=== PATIENT | male | born 1940 | race Caucasian/White ===

== ENCOUNTER 2021-02-26 10:07 | Observation (INO) ==
[2021-02-26 10:58] LABS: Basophils # 0.1 K/mcL (0.0-0.2); Basophils % 0.5 %; Eosinophils # 0.2 K/mcL (0.0-0.6); Eosinophils % 0.9 %; Hematocrit 32.7 % (37.5-50.1); Immature Granulocytes % 0.5 % (0-4); Lymphocytes # 0.7 K/mcL (0.6-4.6); Lymphocytes % 3.9 %; Mean Corpuscular HGB Conc 30.6 g/dL (31.6-35.5); Mean Corpuscular Volume 98.2 fL (83.0-100.0); Mean Platelet Volume 9.3 fL (9.4-12.4); Monocytes # 1.2 K/mcL (0.0-1.3); Platelet Count 356 K/mcL (140-400); Red Blood Count 3.33 M/mcL (4.19-5.50); Red Cell Distribution Width 14.1 % (11.5-14.5); Segmented Neutrophils % 87.2 %; White Blood Count 17.2 K/mcL (4.3-11.1)
[2021-02-26 11:07] LABS: Prothrombin Time 11.6 Seconds (9.4-12.1)
[2021-02-26 11:09] LABS: Activated Partial Thrombo Time 31.9 Seconds (26.0-36.0)
[2021-02-26 11:19] LABS: BUN/Creatinine Ratio 15 (6-26); Blood Urea Nitrogen 23 mg/dL (8-23); Calcium 8.9 mg/dL (8.6-10.3); Carbon Dioxide 29 mEq/L (23-29); Chloride 100 mEq/L (98-107); Glucose 167 mg/dL (70-105); Osmolality,Calculated 293 (280-300); Potassium 4.4 mEq/L (3.5-5.1); Sodium 138 mEq/L (136-145); Troponin I < 0.03 ng/mL (< 0.04); eGFR For African Americans 53 (> 60); eGFR For Non-African Americans 43 (> 60)
[2021-02-26] MEDS ORDERED: Ondansetron 4 MG/2 ML VIAL IVP ONE (12:31)
[2021-02-26] MEDS ORDERED: 0.9 % Sodium Chloride 1,000 ML IV ONE (13:19)
[2021-02-26] MEDS ORDERED: Melatonin 3 MG TABLET PO PRN (14:21)
[2021-02-26] MEDS ORDERED: Acetaminophen 325 MG TABLET PO PRN (14:21)
[2021-02-26] MEDS ORDERED: Naloxone 0.4 MG/ML INJ IVP PRN (14:21)
[2021-02-26] MEDS ORDERED: Perflutren Lipid Microsphere 1.3 ML in 0.9 % Sodium Chloride 8.7 ML IVP PRN (14:25)
[2021-02-26] MEDS ORDERED: Nitroglycerin 0.4 MG TAB.SUBL SL PRN (14:29)
[2021-02-26 15:50] LABS: Bacteria,Urine Few per hpf (None-Few); Bilirubin,Urine Negative (Negative); Blood,Urine Negative (Negative); Clarity,Urine Turbid (Clear); Color,Urine Yellow (Yellow); Glucose,Urine (UA) Normal (Normal); Hyaline Casts,Urine Few per lpf (None Seen); Ketones,Urine Negative (Negative); Leukocyte Esterase,Urine Negative (Negative); Mucus,Urine Few per lpf (None-Few); Nitrite,Urine Negative (Negative); Protein,Urine 50 mg/dL (Neg-Trace); RBC,Urine 0-3 per hpf (0-3); Specific Gravity,Urine 1.023 (1.010-1.025); Transitional Epi Cells,Urine Few per hpf (None-Few); Urobilinogen,Urine Normal (Normal); WBC,Urine 0-3 per hpf (0-3)
[2021-02-26] MEDS ORDERED: ALPRAZolam 0.25 MG TABLET PO PRN (16:38)
[2021-02-26] MEDS: 0.9 % Sodium Chloride 1,000 ML IVC SCH ×3 (17:33→18:40)
[2021-02-26] MEDS: Ondansetron 4 MG/2 ML VIAL IVP PRN (17:33)
[2021-02-27] MEDS: 0.9 % Sodium Chloride 1,000 ML IVC SCH (04:47)
[2021-02-27 06:13] LABS: Basophils # 0.1 K/mcL (0.0-0.2); Basophils % 0.5 %; Eosinophils # 0.2 K/mcL (0.0-0.6); Eosinophils % 1.7 %; Hematocrit 30.7 % (37.5-50.1); Hemoglobin 9.6 g/dL (12.9-16.9); Immature Granulocytes % 0.4 % (0-4); Lymphocytes # 0.8 K/mcL (0.6-4.6); Mean Corpuscular HGB Conc 31.3 g/dL (31.6-35.5); Mean Corpuscular Hemoglobin 30.6 pg (28.0-33.3); Mean Corpuscular Volume 97.8 fL (83.0-100.0); Mean Platelet Volume 9.9 fL (9.4-12.4); Monocytes % 8.6 %; Neutrophils # 9.6 K/mcL (1.6-8.9); Platelet Count 332 K/mcL (140-400); Red Blood Count 3.14 M/mcL (4.19-5.50); Red Cell Distribution Width 14.1 % (11.5-14.5); Segmented Neutrophils % 81.8 %; White Blood Count 11.7 K/mcL (4.3-11.1)
[2021-02-27 06:18] LABS: BUN/Creatinine Ratio 15 (6-26); Blood Urea Nitrogen 17 mg/dL (8-23); Calcium 8.2 mg/dL (8.6-10.3); Carbon Dioxide 29 mEq/L (23-29); Chloride 103 mEq/L (98-107); Glucose 131 mg/dL (70-105); Magnesium 1.9 mg/dL (1.6-2.6); Osmolality,Calculated 293 (280-300); Potassium 3.4 mEq/L (3.5-5.1); Sodium 140 mEq/L (136-145); eGFR For African Americans > 60 (> 60); eGFR For Non-African Americans > 60 (> 60)
[2021-02-27] MEDS: Aspirin Enteric Coated 81 MG Tablet PO SCH (08:36)
[2021-02-27] MEDS: FLUoxetine 20 MG CAPSULE PO SCH (08:36)
[2021-02-27] MEDS: amLODIPine 5 MG TABLET PO SCH (08:36)
[2021-02-27] MEDS: Ondansetron 4 MG/2 ML VIAL IVP PRN (08:40)
[2021-02-27] MEDS: Pantoprazole 40 MG VIAL IVP SCH ×2 (08:43→16:57)
[2021-02-27] MEDS ORDERED: *HR* HYDROcodone/Acet 7.5/325 mg TABLET PO PRN ×2 (10:59→12:35)
[2021-02-27] MEDS: OLANZapine 5 MG TAB.RAPDIS PO SCH (11:34)
[2021-02-27 11:43] LABS: Lipase 12 Units/L (11-82)
[2021-02-27] MEDS ORDERED: *HR* OxyCODONE Immed Rel 5 MG TABLET PO PRN (12:35)
[2021-02-27] MEDS ORDERED: Abiraterone Acetate [Zytiga] 250 MG Tablet PO SCH (13:00)
[2021-02-27] MEDS: Abiraterone Acetate [Zytiga] 250 MG Tablet PO SCH (13:39)
[2021-02-27] MEDS: predniSONE 5 MG TABLET PO SCH (16:57)
[2021-02-27 21:14] LABS: Adenovirus F 40/41 PCR Not detected (Not detect); Astrovirus PCR Not detected (Not detect); C.difficile Toxin A/B Gene PCR Not detected (Not detect); Campylobacter by PCR Not detected (Not detect); Cryptosporidium by PCR Not detected (Not detect); Cyclospora cayetanensis PCR Not detected (Not detect); E. coli O157 by PCR Not detected (Not detect); Entamoeba histolytica PCR Not detected (Not detect); Enteroaggregative E.coli(EAEC) Not detected (Not detect); Enteropathogenic E.coli(EPEC) Not detected (Not detect); Enterotoxigenic E.coli (ETEC) Not detected (Not detect); Giardia lamblia PCR Not detected (Not detect); Norovirus GI/GII PCR Not detected (Not detect); Plesiomonas shigelloides PCR Not detected (Not detect); Rotavirus A PCR Not detected (Not detect); Salmonella PCR Not detected (Not detect); Sapovirus PCR Not detected (Not detect); Shig/EnteroinvasiveE coli EIEC Not detected (Not detect); Shigalike tox-prod E coli STEC Not detected (Not detect); Vibrio PCR Not detected (Not detect); Vibrio cholerae PCR Not detected (Not detect); Yersinia enterocolitica PCR Not detected (Not detect)
[2021-02-28] MEDS: Pantoprazole 40 MG VIAL IVP SCH (05:21)
[2021-02-28 05:49] LABS: Hematocrit 29.7 % (37.5-50.1); Hemoglobin 9.4 g/dL (12.9-16.9); Mean Corpuscular HGB Conc 31.6 g/dL (31.6-35.5); Mean Corpuscular Hemoglobin 30.6 pg (28.0-33.3); Mean Corpuscular Volume 96.7 fL (83.0-100.0); Mean Platelet Volume 9.3 fL (9.4-12.4); Platelet Count 320 K/mcL (140-400); Red Blood Count 3.07 M/mcL (4.19-5.50); Red Cell Distribution Width 13.8 % (11.5-14.5); White Blood Count 10.8 K/mcL (4.3-11.1)
[2021-02-28] MEDS ORDERED: *HR* Enoxaparin 40 MG/0.4 ML SYRINGE SQ SCH (06:00)
[2021-02-28 06:13] LABS: BUN/Creatinine Ratio 12 (6-26); Blood Urea Nitrogen 12 mg/dL (8-23); Calcium 8.2 mg/dL (8.6-10.3); Carbon Dioxide 30 mEq/L (23-29); Chloride 104 mEq/L (98-107); Glucose 132 mg/dL (70-105); Osmolality,Calculated 292 (280-300); Potassium 3.6 mEq/L (3.5-5.1); Sodium 140 mEq/L (136-145); eGFR For African Americans > 60 (> 60); eGFR For Non-African Americans > 60 (> 60)
[2021-02-28] MEDS: FLUoxetine 20 MG CAPSULE PO SCH (09:20)
[2021-02-28] MEDS: amLODIPine 5 MG TABLET PO SCH (09:20)
[2021-02-28] MEDS: Aspirin Enteric Coated 81 MG Tablet PO SCH (09:22)
[2021-02-28] MEDS: Abiraterone Acetate [Zytiga] 250 MG Tablet PO SCH (09:24)
[2021-02-28] MEDS: predniSONE 5 MG TABLET PO SCH (09:27)
[2021-02-28] MEDS: OLANZapine 5 MG TAB.RAPDIS PO SCH (09:29)
[2021-02-28 10:55] VITALS: BP 144/63; PULSE 89; TEMP 97.2; O2SAT 94
== END 2021-02-28 11:57 | disposition home or self-care (01) ==
LOC: EMEROOARM 10:07 → 2ANU 10:07 → SUATTDRO 14:27 → 2ANU 14:38
PROVIDERS: ADMIT Hospitalist; ATTEND Internal Medicine

== ENCOUNTER 2021-09-21 01:25 | Inpatient (IN) ==
[2021-09-21] MEDS ORDERED: Naloxone 0.4 MG/ML INJ IVP PRN (02:21)
[2021-09-21] MEDS ORDERED: Acetaminophen 325 MG TABLET PO PRN (02:21)
[2021-09-21] MEDS ORDERED: Dextrose Gel 15 GM/37.5 ML TUBE PO PRN ×2 (03:44)
[2021-09-21] MEDS ORDERED: *HR* Dextrose 50 % in Water (Syg) 50 ML SYRINGE IVP PRN (03:44)
[2021-09-21] MEDS ORDERED: D5% in Water 1,000 ML IVC PRN (03:44)
[2021-09-21] MEDS ORDERED: Azithromycin 500 MG in 0.9 % Sodium Chloride 250 ML IVPB SCH (04:00)
[2021-09-21] MEDS: *HR* Heparin 5,000 UNIT/ML VIAL SQ SCH ×3 (05:23→20:55)
[2021-09-21 06:00] LABS: Basophils # 0.1 K/mcL (0.0-0.2); Basophils % 0.5 %; Eosinophils # 0.1 K/mcL (0.0-0.6); Eosinophils % 1.2 %; Hematocrit 27.1 % (37.5-50.1); Hemoglobin 8.4 g/dL (12.9-16.9); Immature Granulocytes % 0.4 % (0-4); Lymphocytes # 0.8 K/mcL (0.6-4.6); Lymphocytes % 6.9 %; Mean Corpuscular Hemoglobin 29.8 pg (28.0-33.3); Mean Corpuscular Volume 96.1 fL (83.0-100.0); Mean Platelet Volume 9.4 fL (9.4-12.4); Monocytes # 1.3 K/mcL (0.0-1.3); Monocytes % 11.6 %; Neutrophils # 8.9 K/mcL (1.6-8.9); Platelet Count 291 K/mcL (140-400); Red Blood Count 2.82 M/mcL (4.19-5.50); Segmented Neutrophils % 79.4 %; White Blood Count 11.3 K/mcL (4.3-11.1)
[2021-09-21 06:06] LABS: INR 1.2; Prothrombin Time 13.7 Seconds (9.4-12.1)
[2021-09-21 06:15] LABS: Calcium 7.8 mg/dL (8.6-10.3); Magnesium 1.7 mg/dL (1.6-2.6); Potassium 5.1 mEq/L (3.5-5.1)
[2021-09-21] MEDS: Insulin LISPRO 300 UNITS/3 ML VIAL SUBQ SCH ×4 (07:24→20:31)
[2021-09-21] MEDS: predniSONE 20 MG TABLET PO SCH ×2 (09:34→11:41)
[2021-09-21] MEDS ORDERED: Iron Sucrose Complex 400 MG in 0.9 % Sodium Chloride 250 ML IVPB ONE (11:20)
[2021-09-21] MEDS: Cyanocobalamin (B-12) 1,000 MCG/ML VIAL IM SCH (11:38)
[2021-09-21] MEDS: 0.9 % Sodium Chloride 1,000 ML IVC SCH (11:38)
[2021-09-21] MEDS: Ondansetron 4 MG/2 ML VIAL IVP PRN ×2 (11:52→20:53)
[2021-09-21] MEDS: *HR* HYDROcodone/Acet 5/325 mg TABLET PO PRN (12:06)
[2021-09-21] MEDS: Doxycycline 100 MG in 0.9 % Sodium Chloride Mini Bag 100 ML IVPB SCH (17:35)
[2021-09-21] MEDS ORDERED: ALPRAZolam 0.25 MG TABLET PO PRN (18:13)
[2021-09-22] MEDS: 0.9 % Sodium Chloride 1,000 ML IVC SCH (04:25)
[2021-09-22] MEDS: Doxycycline 100 MG in 0.9 % Sodium Chloride Mini Bag 100 ML IVPB SCH ×2 (05:40→17:12)
[2021-09-22] MEDS: *HR* Heparin 5,000 UNIT/ML VIAL SQ SCH ×3 (05:40→20:49)
[2021-09-22 06:01] LABS: Basophils # 0.1 K/mcL (0.0-0.2); Basophils % 0.5 %; Eosinophils # 0.1 K/mcL (0.0-0.6); Eosinophils % 1.4 %; Hematocrit 27.2 % (37.5-50.1); Hemoglobin 8.5 g/dL (12.9-16.9); Immature Granulocytes % 0.4 % (0-4); Lymphocytes # 0.6 K/mcL (0.6-4.6); Lymphocytes % 6.1 %; Mean Corpuscular HGB Conc 31.3 g/dL (31.6-35.5); Mean Corpuscular Hemoglobin 29.5 pg (28.0-33.3); Mean Corpuscular Volume 94.4 fL (83.0-100.0); Mean Platelet Volume 9.5 fL (9.4-12.4); Monocytes # 1.1 K/mcL (0.0-1.3); Monocytes % 11.3 %; Neutrophils # 7.9 K/mcL (1.6-8.9); Platelet Count 293 K/mcL (140-400); Red Blood Count 2.88 M/mcL (4.19-5.50); Segmented Neutrophils % 80.3 %; White Blood Count 9.8 K/mcL (4.3-11.1)
[2021-09-22] MEDS: Insulin LISPRO 300 UNITS/3 ML VIAL SUBQ SCH ×4 (07:07→21:16)
[2021-09-22] MEDS: *HR* HYDROcodone/Acet 5/325 mg TABLET PO PRN ×2 (07:24→20:49)
[2021-09-22] MEDS: Ondansetron 4 MG/2 ML VIAL IVP PRN (07:24)
[2021-09-22] MEDS: Cyanocobalamin (B-12) 1,000 MCG/ML VIAL IM SCH (07:24)
[2021-09-22 08:34] LABS: BUN/Creatinine Ratio 13 (6-26); Blood Urea Nitrogen 18 mg/dL (8-23); Calcium 7.7 mg/dL (8.6-10.3); Carbon Dioxide 24 mEq/L (23-29); Chloride 106 mEq/L (98-107); Glucose 108 mg/dL (70-105); Magnesium 1.8 mg/dL (1.6-2.6); Osmolality,Calculated 288 (280-300); Phosphorous 2.1 mg/dL (2.7-4.5); Potassium 3.9 mEq/L (3.5-5.1); Sodium 138 mEq/L (136-145); eGFR For African Americans > 60 (> 60); eGFR For Non-African Americans 50 (> 60)
[2021-09-22] MEDS ORDERED: *HR* Promethazine 25 MG/ML VIAL IM ONE (12:02)
[2021-09-22 18:24] LABS: Adenovirus F 40/41 PCR Not detected (Not detect); Astrovirus PCR Not detected (Not detect); C.difficile Toxin A/B Gene PCR Not detected (Not detect); Campylobacter by PCR Not detected (Not detect); Cryptosporidium by PCR Not detected (Not detect); Cyclospora cayetanensis PCR Not detected (Not detect); Entamoeba histolytica PCR Not detected (Not detect); Enteroaggregative E.coli(EAEC) Not detected (Not detect); Enteropathogenic E.coli(EPEC) Not detected (Not detect); Enterotoxigenic E.coli (ETEC) Not detected (Not detect); Giardia lamblia PCR Not detected (Not detect); Norovirus GI/GII PCR Not detected (Not detect); Plesiomonas shigelloides PCR Not detected (Not detect); Rotavirus A PCR Not detected (Not detect); Salmonella PCR Not detected (Not detect); Sapovirus PCR Not detected (Not detect); Shig/EnteroinvasiveE coli EIEC Not detected (Not detect); Shigalike tox-prod E coli STEC Not detected (Not detect); Vibrio PCR Not detected (Not detect); Vibrio cholerae PCR Not detected (Not detect); Yersinia enterocolitica PCR Not detected (Not detect)
[2021-09-23] MEDS: Doxycycline 100 MG in 0.9 % Sodium Chloride Mini Bag 100 ML IVPB SCH (06:22)
[2021-09-23] MEDS: *HR* Heparin 5,000 UNIT/ML VIAL SQ SCH ×3 (06:28→22:05)
[2021-09-23] MEDS: Insulin LISPRO 300 UNITS/3 ML VIAL SUBQ SCH ×4 (07:29→21:33)
[2021-09-23] MEDS ORDERED: Benzonatate 100 MG CAPSULE PO PRN (09:21)
[2021-09-23] MEDS ORDERED: Menthol 1 EACH LOZENGE PO PRN (11:12)
[2021-09-23 11:36] LABS: Basophils # 0.1 K/mcL (0.0-0.2); Basophils % 0.5 %; Eosinophils # 0.1 K/mcL (0.0-0.6); Eosinophils % 1.1 %; Hematocrit 27.7 % (37.5-50.1); Hemoglobin 8.7 g/dL (12.9-16.9); Immature Granulocytes % 0.4 % (0-4); Lymphocytes # 0.6 K/mcL (0.6-4.6); Lymphocytes % 5.2 %; Mean Corpuscular HGB Conc 31.4 g/dL (31.6-35.5); Mean Corpuscular Hemoglobin 29.6 pg (28.0-33.3); Mean Corpuscular Volume 94.2 fL (83.0-100.0); Mean Platelet Volume 9.3 fL (9.4-12.4); Monocytes % 9.2 %; Neutrophils # 8.9 K/mcL (1.6-8.9); Platelet Count 334 K/mcL (140-400); Red Blood Count 2.94 M/mcL (4.19-5.50); Red Cell Distribution Width 13.9 % (11.5-14.5); Segmented Neutrophils % 83.6 %; White Blood Count 10.6 K/mcL (4.3-11.1)
[2021-09-23] MEDS: Ipratropium/Albuterol Neb 3 ML IH PRN (11:38)
[2021-09-23] MEDS: *HR* HYDROcodone/Acet 5/325 mg TABLET PO PRN ×2 (11:45→18:38)
[2021-09-23 11:59] LABS: Magnesium 1.7 mg/dL (1.6-2.6); Phosphorous 1.6 mg/dL (2.7-4.5)
[2021-09-23] MEDS: Ondansetron 4 MG/2 ML VIAL IVP PRN (12:09)
[2021-09-23 12:35] LABS: BUN/Creatinine Ratio 10 (6-26); Blood Urea Nitrogen 11 mg/dL (8-23); Calcium 7.5 mg/dL (8.6-10.3); Carbon Dioxide 23 mEq/L (23-29); Chloride 107 mEq/L (98-107); Glucose 123 mg/dL (70-105); Osmolality,Calculated 287 (280-300); Potassium 3.8 mEq/L (3.5-5.1); Sodium 138 mEq/L (136-145); eGFR For African Americans > 60 (> 60); eGFR For Non-African Americans > 60 (> 60)
[2021-09-23] MEDS: Cefdinir 300 MG CAPSULE PO SCH ×2 (15:46→22:05)
[2021-09-23] MEDS ORDERED: Metoprolol XL (24 HR) Succ 25 MG TAB.ER.24H PO SCH (16:15)
[2021-09-23] MEDS: Doxycycline 100 MG CAPSULE PO SCH (18:38)
[2021-09-23] MEDS ORDERED: *HR* Promethazine 25 MG/ML VIAL IM ONE (18:49)
[2021-09-23] MEDS ORDERED: Famotidine 20 MG TABLET PO SCH (21:00)
[2021-09-24 04:30] LABS: Basophils % 0.4 %; Eosinophils # 0.2 K/mcL (0.0-0.6); Eosinophils % 1.9 %; Hematocrit 26.4 % (37.5-50.1); Hemoglobin 8.1 g/dL (12.9-16.9); Immature Granulocytes % 0.3 % (0-4); Lymphocytes # 0.8 K/mcL (0.6-4.6); Lymphocytes % 8.1 %; Mean Corpuscular HGB Conc 30.7 g/dL (31.6-35.5); Mean Corpuscular Hemoglobin 29.1 pg (28.0-33.3); Mean Platelet Volume 9.6 fL (9.4-12.4); Monocytes % 9.8 %; Neutrophils # 7.8 K/mcL (1.6-8.9); Platelet Count 361 K/mcL (140-400); Red Blood Count 2.78 M/mcL (4.19-5.50); Red Cell Distribution Width 13.7 % (11.5-14.5); Segmented Neutrophils % 79.5 %; White Blood Count 9.8 K/mcL (4.3-11.1)
[2021-09-24 04:37] LABS: BUN/Creatinine Ratio 9 (6-26); Blood Urea Nitrogen 11 mg/dL (8-23); Calcium 7.3 mg/dL (8.6-10.3); Carbon Dioxide 27 mEq/L (23-29); Chloride 108 mEq/L (98-107); Glucose 98 mg/dL (70-105); Magnesium 1.6 mg/dL (1.6-2.6); Osmolality,Calculated 289 (280-300); Phosphorous 1.9 mg/dL (2.7-4.5); Potassium 3.6 mEq/L (3.5-5.1); Sodium 140 mEq/L (136-145); eGFR For African Americans > 60 (> 60); eGFR For Non-African Americans 58 (> 60)
[2021-09-24] MEDS: Doxycycline 100 MG CAPSULE PO SCH (05:22)
[2021-09-24] MEDS: *HR* Heparin 5,000 UNIT/ML VIAL SQ SCH ×3 (05:23→21:45)
[2021-09-24] MEDS: BuPROPion XL (24 HR) 150 MG TABLET PO SCH (07:45)
[2021-09-24] MEDS: Aspirin Enteric Coated 81 MG Tablet PO SCH (07:45)
[2021-09-24] MEDS: amLODIPine 5 MG TABLET PO SCH (07:46)
[2021-09-24] MEDS: Cefdinir 300 MG CAPSULE PO SCH (07:46)
[2021-09-24] MEDS: OLANZapine 5 MG TAB.RAPDIS PO SCH (07:46)
[2021-09-24] MEDS: Magnesium Oxide 400 MG TABLET PO SCH (07:46)
[2021-09-24] MEDS: FLUoxetine 20 MG CAPSULE PO SCH (07:49)
[2021-09-24] MEDS: Insulin LISPRO 300 UNITS/3 ML VIAL SUBQ SCH ×4 (07:57→21:22)
[2021-09-24] MEDS ORDERED: Acetaminophen IV 500 MG/50 ML BAG IVPB ONE (07:59)
[2021-09-24] MEDS ORDERED: Potassium Phosphate 44 MEQ in 0.9 % Sodium Chloride 250 ML IVPB ONE (08:00)
[2021-09-24] MEDS: Metoprolol XL (24 HR) Succ 25 MG TAB.ER.24H PO SCH ×2 (09:33→10:26)
[2021-09-24] MEDS: Piperacillin/Tazobactam 3.375 GM in 0.9 % Sodium Chloride Mini Bag 100 ML IVPB SCH ×2 (09:33→16:36)
[2021-09-24 10:39] LABS: Adenovirus Not Detected (Not Detect); Bordetella Pertussis Not Detected (Not Detect); Chlamydophila pneumoniae Not Detected (Not Detect); Coronavirus 229E Not Detected (Not Detect); Coronavirus HKU1 Not Detected (Not Detect); Coronavirus NL63 Not Detected (Not Detect); Coronavirus OC43 Not Detected (Not Detect); Human Metapneumovirus Not Detected (Not Detect); Human Rhinovirus/Enterovirus Not Detected (Not Detect); Influenza A Subtype 2009 H1 Not Detected (Not Detect); Influenza B Not Detected (Not Detect); Mycoplasma pneumoniae Not Detected (Not Detect); Parainfluenza Virus 1 Not Detected (Not Detect); Parainfluenza Virus 2 Not Detected (Not Detect); Parainfluenza Virus 3 Not Detected (Not Detect); Parainfluenza Virus 4 Not Detected (Not Detect); Respiratory Syncytial Virus Not Detected (Not Detect); SARS-CoV-2 Not Detected (Not Detect)
[2021-09-24] MEDS: *HR* HYDROcodone/Acet 5/325 mg TABLET PO PRN (10:42)
[2021-09-24] MEDS: Ipratropium/Albuterol Neb 3 ML IH PRN ×2 (11:37→15:37)
[2021-09-24 14:00] LABS: Bacteria,Urine Few per hpf (None-Few); Bilirubin,Urine Negative (Negative); Blood,Urine Negative (Negative); Budding Yeast,Urine Few per hpf (None Seen); Clarity,Urine Turbid (Clear); Color,Urine Yellow (Yellow); Glucose,Urine (UA) Normal (Normal); Hyaline Casts,Urine Few per lpf (None Seen); Ketones,Urine Negative (Negative); Leukocyte Esterase,Urine Negative (Negative); Mucus,Urine Few per lpf (None-Few); Nitrite,Urine Negative (Negative); Protein,Urine 70 mg/dL (Neg-Trace); Specific Gravity,Urine 1.026 (1.010-1.025); Squamous Epithelial Cell,Urine Few per hpf (None-Few); Triple Phosphate Crystal,Urine Present per hpf; Urobilinogen,Urine Normal (Normal)
[2021-09-24] MEDS: Pantoprazole 40 MG VIAL IVP SCH (16:37)
[2021-09-24] MEDS: Famotidine 20 MG TABLET PO SCH (21:22)
[2021-09-24] MEDS: *HR* OxyCODONE Immed Rel 5 MG TABLET PO PRN (21:23)
[2021-09-24] MEDS: Melatonin 3 MG TABLET PO PRN (21:23)
[2021-09-25] MEDS: Piperacillin/Tazobactam 3.375 GM in 0.9 % Sodium Chloride Mini Bag 100 ML IVPB SCH ×4 (00:20→23:52)
[2021-09-25] MEDS: *HR* Heparin 5,000 UNIT/ML VIAL SQ SCH ×3 (06:43→20:59)
[2021-09-25 07:03] LABS: Basophils # 0.1 K/mcL (0.0-0.2); Basophils % 0.5 %; Eosinophils # 0.3 K/mcL (0.0-0.6); Eosinophils % 2.3 %; Hematocrit 26.5 % (37.5-50.1); Hemoglobin 8.1 g/dL (12.9-16.9); Immature Granulocytes % 0.4 % (0-4); Lymphocytes # 0.6 K/mcL (0.6-4.6); Lymphocytes % 5.9 %; Mean Corpuscular HGB Conc 30.6 g/dL (31.6-35.5); Mean Corpuscular Hemoglobin 29.5 pg (28.0-33.3); Mean Corpuscular Volume 96.4 fL (83.0-100.0); Mean Platelet Volume 9.4 fL (9.4-12.4); Platelet Count 394 K/mcL (140-400); Red Blood Count 2.75 M/mcL (4.19-5.50); Red Cell Distribution Width 14.2 % (11.5-14.5); Segmented Neutrophils % 81.9 %; White Blood Count 10.9 K/mcL (4.3-11.1)
[2021-09-25] MEDS: Ipratropium/Albuterol Neb 3 ML IH PRN ×2 (07:31→21:15)
[2021-09-25] MEDS: Insulin LISPRO 300 UNITS/3 ML VIAL SUBQ SCH ×4 (07:49→20:51)
[2021-09-25 07:58] LABS: Calcium 7.3 mg/dL (8.6-10.3); Potassium 4.1 mEq/L (3.5-5.1)
[2021-09-25] MEDS: Magnesium Oxide 400 MG TABLET PO SCH (08:16)
[2021-09-25] MEDS: BuPROPion XL (24 HR) 150 MG TABLET PO SCH (08:16)
[2021-09-25] MEDS: FLUoxetine 20 MG CAPSULE PO SCH (08:16)
[2021-09-25] MEDS: amLODIPine 5 MG TABLET PO SCH (08:16)
[2021-09-25] MEDS: *HR* OxyCODONE Immed Rel 5 MG TABLET PO PRN ×2 (08:16→20:59)
[2021-09-25] MEDS: Aspirin Enteric Coated 81 MG Tablet PO SCH (08:16)
[2021-09-25] MEDS: Metoprolol XL (24 HR) Succ 25 MG TAB.ER.24H PO SCH (08:17)
[2021-09-25] MEDS: Pantoprazole 40 MG VIAL IVP SCH (08:18)
[2021-09-25] MEDS: OLANZapine 5 MG TAB.RAPDIS PO SCH (08:25)
[2021-09-25] MEDS: 0.9 % Sodium Chloride 1,000 ML IVC SCH (11:52)
[2021-09-25] MEDS: Ondansetron 4 MG/2 ML VIAL IVP PRN (13:54)
[2021-09-25] MEDS: *HR* HYDROcodone/Acet 7.5/325 mg TABLET PO PRN (15:20)
[2021-09-25] MEDS: Famotidine 20 MG TABLET PO SCH (20:59)
[2021-09-25] MEDS: Melatonin 3 MG TABLET PO PRN (20:59)
[2021-09-26] MEDS: 0.9 % Sodium Chloride 1,000 ML IVC SCH (04:14)
[2021-09-26] MEDS: *HR* Heparin 5,000 UNIT/ML VIAL SQ SCH (05:42)
[2021-09-26 06:03] LABS: Calcium 7.3 mg/dL (8.6-10.3); Potassium 3.9 mEq/L (3.5-5.1)
[2021-09-26] MEDS: Ipratropium/Albuterol Neb 3 ML IH PRN (07:07)
[2021-09-26] MEDS ORDERED: 0.9 % Sodium Chloride 1,000 ML IVC SCH (08:00)
[2021-09-26] MEDS: *HR* HYDROcodone/Acet 7.5/325 mg TABLET PO PRN (08:54)
[2021-09-26] MEDS: BuPROPion XL (24 HR) 150 MG TABLET PO SCH (08:55)
[2021-09-26] MEDS: Metoprolol XL (24 HR) Succ 25 MG TAB.ER.24H PO SCH (08:55)
[2021-09-26] MEDS: Piperacillin/Tazobactam 3.375 GM in 0.9 % Sodium Chloride Mini Bag 100 ML IVPB SCH (08:55)
[2021-09-26] MEDS: Pantoprazole 40 MG VIAL IVP SCH (08:55)
[2021-09-26] MEDS: Magnesium Oxide 400 MG TABLET PO SCH (08:55)
[2021-09-26] MEDS: Aspirin Enteric Coated 81 MG Tablet PO SCH (08:55)
[2021-09-26] MEDS: OLANZapine 5 MG TAB.RAPDIS PO SCH (08:55)
[2021-09-26] MEDS: amLODIPine 5 MG TABLET PO SCH (08:55)
[2021-09-26] MEDS: FLUoxetine 20 MG CAPSULE PO SCH (08:55)
[2021-09-26] MEDS: Insulin LISPRO 300 UNITS/3 ML VIAL SUBQ SCH ×2 (08:56→11:39)
[2021-09-26 11:25] VITALS: BP 111/68; PULSE 87; TEMP 98.8; O2SAT 97
== END 2021-09-26 16:25 | disposition home or self-care (01) | DRG 139 ==
LOC: 2ANU → SUATTDRO 01:25
PROVIDERS: ADMIT Emergency Medicine; ATTEND Internal Medicine

== ENCOUNTER 2021-10-19 21:17 | Inpatient (IN) ==
[2021-10-20] MEDS ORDERED: Naloxone 0.4 MG/ML INJ IVP PRN (02:18)
[2021-10-20] MEDS ORDERED: Melatonin 3 MG TABLET PO PRN (02:18)
[2021-10-20] MEDS ORDERED: Acetaminophen 325 MG TABLET PO PRN (02:18)
[2021-10-20] MEDS ORDERED: Iopamidol - 370 500 ML MLS IVP ONE (05:10)
[2021-10-20] MEDS ORDERED: 0.9 % Sodium Chloride 1,000 ML IVC SCH (05:15)
[2021-10-20 06:07] LABS: Hemoglobin 10.1 g/dL (12.9-16.9); Mean Corpuscular Volume 95.3 fL (83.0-100.0); Mean Platelet Volume 9.9 fL (9.4-12.4); Red Cell Distribution Width 14.8 % (11.5-14.5)
[2021-10-20 06:08] LABS: Hematocrit 32.7 % (37.5-50.1); Mean Corpuscular HGB Conc 30.9 g/dL (31.6-35.5); Mean Corpuscular Hemoglobin 29.4 pg (28.0-33.3); Platelet Count 395 K/mcL (140-400); Red Blood Count 3.43 M/mcL (4.19-5.50); White Blood Count 28.1 K/mcL (4.3-11.1)
[2021-10-20 06:26] LABS: Alanine Aminotransferase 4 Units/L (7-52); Albumin 2.9 g/dL (3.5-5.7); Albumin/Globulin Ratio 0.9 (1.1-2.2); Alkaline Phosphatase 65 Units/L (34-104); Aspartate Amino Transferase 8 Units/L (13-39); BUN/Creatinine Ratio 12 (6-26); Bilirubin,Total 0.5 mg/dL (0.3-1.0); Blood Urea Nitrogen 17 mg/dL (8-23); Calcium 7.7 mg/dL (8.6-10.3); Carbon Dioxide 22 mEq/L (23-29); Chloride 105 mEq/L (98-107); Globulin 3.3 g/dL (2.4-3.5); Glucose 123 mg/dL (70-105); Osmolality,Calculated 281 (280-300); Sodium 134 mEq/L (136-145); Total Protein 6.2 g/dL (6.4-8.9); eGFR For African Americans > 60 (> 60); eGFR For Non-African Americans 50 (> 60)
[2021-10-20] MEDS ORDERED: *HR* Dextrose 50 % in Water (Syg) 50 ML SYRINGE IVP PRN (07:47)
[2021-10-20] MEDS ORDERED: Dextrose Gel 15 GM/37.5 ML TUBE PO PRN ×2 (07:47)
[2021-10-20] MEDS ORDERED: D5% in Water 1,000 ML IVC PRN (07:47)
[2021-10-20 08:41] LABS: Magnesium 1.4 mg/dL (1.6-2.6); Phosphorous 2.6 mg/dL (2.7-4.5)
[2021-10-20] MEDS: *HR* OxyCODONE Immed Rel 5 MG TABLET PO PRN (10:38)
[2021-10-20] MEDS: *HR* Heparin 5,000 UNIT/ML VIAL SQ SCH ×2 (14:15→21:46)
[2021-10-20] MEDS: 0.9 % Sodium Chloride 1,000 ML IVC SCH ×2 (14:15→21:45)
[2021-10-20] MEDS: Vancomycin Oral Soln 125 MG/2.5 ML UDC PO SCH ×3 (14:16→21:46)
[2021-10-20] MEDS: Ondansetron ODT 4 MG TAB.RAPDIS SL PRN (14:24)
[2021-10-20 15:53] LABS: Campylobacter by PCR Not detected (Not detect)
[2021-10-20 16:04] LABS: Adenovirus F 40/41 PCR Not detected (Not detect); Astrovirus PCR Not detected (Not detect); C.difficile Toxin A/B Gene PCR DETECTED (Not detect); Cryptosporidium by PCR Not detected (Not detect); Cyclospora cayetanensis PCR Not detected (Not detect); E. coli O157 by PCR Not detected (Not detect); Entamoeba histolytica PCR Not detected (Not detect); Enteroaggregative E.coli(EAEC) Not detected (Not detect); Enteropathogenic E.coli(EPEC) Not detected (Not detect); Enterotoxigenic E.coli (ETEC) Not detected (Not detect); Giardia lamblia PCR Not detected (Not detect); Norovirus GI/GII PCR Not detected (Not detect); Plesiomonas shigelloides PCR Not detected (Not detect); Rotavirus A PCR Not detected (Not detect); Salmonella PCR Not detected (Not detect); Sapovirus PCR Not detected (Not detect); Shig/EnteroinvasiveE coli EIEC Not detected (Not detect); Shigalike tox-prod E coli STEC Not detected (Not detect); Vibrio PCR Not detected (Not detect); Vibrio cholerae PCR Not detected (Not detect); Yersinia enterocolitica PCR Not detected (Not detect)
[2021-10-21] MEDS: 0.9 % Sodium Chloride 1,000 ML IVC SCH ×2 (05:35→12:56)
[2021-10-21] MEDS: *HR* Heparin 5,000 UNIT/ML VIAL SQ SCH ×3 (05:36→22:08)
[2021-10-21] MEDS: *HR* OxyCODONE Immed Rel 5 MG TABLET PO PRN ×2 (07:40→17:06)
[2021-10-21] MEDS: Vancomycin Oral Soln 125 MG/2.5 ML UDC PO SCH ×4 (09:13→22:09)
[2021-10-21] MEDS: Ondansetron ODT 4 MG TAB.RAPDIS SL PRN (12:27)
[2021-10-21] MEDS ORDERED: ALPRAZolam 0.25 MG TABLET PO PRN (14:43)
[2021-10-21 15:41] LABS: Basophils # 0.1 K/mcL (0.0-0.2); Basophils % 0.5 %; Eosinophils # 0.4 K/mcL (0.0-0.6); Eosinophils % 2.1 %; Hematocrit 32.5 % (37.5-50.1); Hemoglobin 10.1 g/dL (12.9-16.9); Immature Granulocytes % 0.7 % (0-4); Lymphocytes # 0.4 K/mcL (0.6-4.6); Lymphocytes % 1.9 %; Mean Corpuscular HGB Conc 31.1 g/dL (31.6-35.5); Mean Corpuscular Hemoglobin 29.8 pg (28.0-33.3); Mean Corpuscular Volume 95.9 fL (83.0-100.0); Mean Platelet Volume 9.6 fL (9.4-12.4); Monocytes # 1.2 K/mcL (0.0-1.3); Monocytes % 5.9 %; Neutrophils # 17.5 K/mcL (1.6-8.9); Platelet Count 355 K/mcL (140-400); Red Blood Count 3.39 M/mcL (4.19-5.50); Red Cell Distribution Width 14.8 % (11.5-14.5); Segmented Neutrophils % 88.9 %; White Blood Count 19.7 K/mcL (4.3-11.1)
[2021-10-21] MEDS: BuPROPion XL (24 HR) 150 MG TABLET PO SCH (16:01)
[2021-10-21 16:05] LABS: Alanine Aminotransferase 3 Units/L (7-52); Albumin 2.6 g/dL (3.5-5.7); Albumin/Globulin Ratio 0.8 (1.1-2.2); Alkaline Phosphatase 85 Units/L (34-104); Aspartate Amino Transferase 11 Units/L (13-39); BUN/Creatinine Ratio 14 (6-26); Bilirubin,Total 0.3 mg/dL (0.3-1.0); Blood Urea Nitrogen 12 mg/dL (8-23); Carbon Dioxide 21 mEq/L (23-29); Chloride 109 mEq/L (98-107); Globulin 3.3 g/dL (2.4-3.5); Glucose 131 mg/dL (70-105); Osmolality,Calculated 284 (280-300); Phosphorous 1.5 mg/dL (2.7-4.5); Potassium 3.5 mEq/L (3.5-5.1); Sodium 136 mEq/L (136-145); Total Protein 5.9 g/dL (6.4-8.9); eGFR For African Americans > 60 (> 60); eGFR For Non-African Americans > 60 (> 60)
[2021-10-21] MEDS: Metoclopramide 10 MG/2 ML VIAL IVP PRN (17:10)
[2021-10-21] MEDS: Magnesium Oxide 400 MG TABLET PO SCH (22:08)
[2021-10-22] MEDS: *HR* Heparin 5,000 UNIT/ML VIAL SQ SCH ×3 (05:08→21:06)
[2021-10-22] MEDS: 0.9 % Sodium Chloride 1,000 ML IVC SCH ×2 (05:31→15:53)
[2021-10-22 10:02] LABS: Basophils # 0.1 K/mcL (0.0-0.2); Basophils % 0.3 %; Eosinophils # 0.2 K/mcL (0.0-0.6); Eosinophils % 1.1 %; Immature Granulocytes % 0.7 % (0-4); Lymphocytes # 0.5 K/mcL (0.6-4.6); Lymphocytes % 2.7 %; Mean Corpuscular HGB Conc 30.3 g/dL (31.6-35.5); Mean Corpuscular Hemoglobin 29.6 pg (28.0-33.3); Mean Corpuscular Volume 97.6 fL (83.0-100.0); Mean Platelet Volume 9.6 fL (9.4-12.4); Monocytes # 1.3 K/mcL (0.0-1.3); Monocytes % 7.6 %; Neutrophils # 15.4 K/mcL (1.6-8.9); Platelet Count 271 K/mcL (140-400); Red Blood Count 3.38 M/mcL (4.19-5.50); Red Cell Distribution Width 14.6 % (11.5-14.5); Segmented Neutrophils % 87.6 %; White Blood Count 17.6 K/mcL (4.3-11.1)
[2021-10-22] MEDS: Aspirin Enteric Coated 81 MG Tablet PO SCH (10:07)
[2021-10-22] MEDS: Vancomycin Oral Soln 125 MG/2.5 ML UDC PO SCH ×3 (10:07→21:11)
[2021-10-22] MEDS: Cholecalciferol (D-3) 1,000 UNIT (25MCG) TABLET PO SCH (10:08)
[2021-10-22] MEDS: FLUoxetine 20 MG CAPSULE PO SCH (10:08)
[2021-10-22] MEDS: Metoprolol XL (24 HR) Succ 25 MG TAB.ER.24H PO SCH (10:08)
[2021-10-22] MEDS: BuPROPion XL (24 HR) 150 MG TABLET PO SCH (10:08)
[2021-10-22] MEDS: OLANZapine 5 MG TAB.RAPDIS PO SCH (10:08)
[2021-10-22] MEDS: Magnesium Oxide 400 MG TABLET PO SCH ×2 (10:11→21:06)
[2021-10-22 10:22] LABS: BUN/Creatinine Ratio 15 (6-26); Blood Urea Nitrogen 12 mg/dL (8-23); Calcium 6.8 mg/dL (8.6-10.3); Carbon Dioxide 20 mEq/L (23-29); Chloride 108 mEq/L (98-107); Glucose 157 mg/dL (70-105); Osmolality,Calculated 287 (280-300); Potassium 3.2 mEq/L (3.5-5.1); Sodium 137 mEq/L (136-145); eGFR For African Americans > 60 (> 60); eGFR For Non-African Americans > 60 (> 60)
[2021-10-22] MEDS: Metoclopramide 10 MG/2 ML VIAL IVP PRN ×2 (10:29→17:51)
[2021-10-22] MEDS ORDERED: Vancomycin 500 MG, Sodium Chloride IRRigation 250 ML RC SCH (13:15)
[2021-10-23] MEDS: 0.9 % Sodium Chloride 1,000 ML IVC SCH ×2 (04:13→14:36)
[2021-10-23] MEDS: *HR* Heparin 5,000 UNIT/ML VIAL SQ SCH ×3 (05:33→20:36)
[2021-10-23 09:38] LABS: Basophils # 0.1 K/mcL (0.0-0.2); Basophils % 0.4 %; Eosinophils # 0.3 K/mcL (0.0-0.6); Eosinophils % 1.4 %; Hemoglobin 9.6 g/dL (12.9-16.9); Immature Granulocytes % 0.6 % (0-4); Lymphocytes # 0.5 K/mcL (0.6-4.6); Lymphocytes % 2.6 %; Mean Corpuscular Hemoglobin 29.5 pg (28.0-33.3); Mean Corpuscular Volume 95.4 fL (83.0-100.0); Monocytes # 1.7 K/mcL (0.0-1.3); Monocytes % 8.6 %; Neutrophils # 16.7 K/mcL (1.6-8.9); Platelet Count 376 K/mcL (140-400); Red Blood Count 3.25 M/mcL (4.19-5.50); Red Cell Distribution Width 14.6 % (11.5-14.5); Segmented Neutrophils % 86.4 %; White Blood Count 19.3 K/mcL (4.3-11.1)
[2021-10-23] MEDS: Magnesium Oxide 400 MG TABLET PO SCH ×2 (09:42→20:35)
[2021-10-23] MEDS: OLANZapine 5 MG TAB.RAPDIS PO SCH (09:42)
[2021-10-23] MEDS: Metoprolol XL (24 HR) Succ 25 MG TAB.ER.24H PO SCH (09:42)
[2021-10-23] MEDS: BuPROPion XL (24 HR) 150 MG TABLET PO SCH (09:42)
[2021-10-23] MEDS: MetroNIDAZOLE 500 MG/100 ML 500 MG/100 ML BAG IVPB SCH ×3 (09:43→23:52)
[2021-10-23] MEDS: Vancomycin Oral Soln 125 MG/2.5 ML UDC PO SCH ×4 (09:43→20:35)
[2021-10-23] MEDS: FLUoxetine 20 MG CAPSULE PO SCH (09:43)
[2021-10-23] MEDS: Cholecalciferol (D-3) 1,000 UNIT (25MCG) TABLET PO SCH (09:43)
[2021-10-23] MEDS: Aspirin Enteric Coated 81 MG Tablet PO SCH (09:43)
[2021-10-23 09:55] LABS: BUN/Creatinine Ratio 17 (6-26); Blood Urea Nitrogen 13 mg/dL (8-23); Calcium 6.8 mg/dL (8.6-10.3); Carbon Dioxide 21 mEq/L (23-29); Chloride 109 mEq/L (98-107); Glucose 147 mg/dL (70-105); Magnesium 1.7 mg/dL (1.6-2.6); Osmolality,Calculated 287 (280-300); Potassium 3.5 mEq/L (3.5-5.1); Sodium 137 mEq/L (136-145); eGFR For African Americans > 60 (> 60); eGFR For Non-African Americans > 60 (> 60)
[2021-10-23] MEDS: Metoclopramide 10 MG/2 ML VIAL IVP PRN (10:01)
[2021-10-23] MEDS ORDERED: Pantoprazole 40 MG VIAL IVP ONE (13:12)
[2021-10-23] MEDS: Calcium Gluconate 1gm/50mL 1 GM/50 ML BAG IVPB SCH ×2 (13:15→14:36)
[2021-10-24 02:18] LABS: Basophils # 0.1 K/mcL (0.0-0.2); Basophils % 0.6 %; Eosinophils # 0.6 K/mcL (0.0-0.6); Eosinophils % 3.4 %; Hemoglobin 9.3 g/dL (12.9-16.9); Lymphocytes # 0.7 K/mcL (0.6-4.6); Lymphocytes % 3.8 %; Mean Corpuscular Hemoglobin 29.5 pg (28.0-33.3); Mean Corpuscular Volume 95.2 fL (83.0-100.0); Mean Platelet Volume 9.4 fL (9.4-12.4); Monocytes # 1.6 K/mcL (0.0-1.3); Monocytes % 9.2 %; Neutrophils # 14.4 K/mcL (1.6-8.9); Platelet Count 363 K/mcL (140-400); Red Blood Count 3.15 M/mcL (4.19-5.50); Red Cell Distribution Width 14.7 % (11.5-14.5); White Blood Count 17.5 K/mcL (4.3-11.1)
[2021-10-24 02:39] LABS: BUN/Creatinine Ratio 15 (6-26); Blood Urea Nitrogen 11 mg/dL (8-23); Calcium 6.8 mg/dL (8.6-10.3); Carbon Dioxide 19 mEq/L (23-29); Chloride 110 mEq/L (98-107); Glucose 96 mg/dL (70-105); Magnesium 2.2 mg/dL (1.6-2.6); Osmolality,Calculated 283 (280-300); Potassium 3.4 mEq/L (3.5-5.1); Sodium 137 mEq/L (136-145); eGFR For African Americans > 60 (> 60); eGFR For Non-African Americans > 60 (> 60)
[2021-10-24] MEDS: *HR* Heparin 5,000 UNIT/ML VIAL SQ SCH ×3 (04:53→21:04)
[2021-10-24] MEDS: MetroNIDAZOLE 500 MG/100 ML 500 MG/100 ML BAG IVPB SCH ×2 (08:24→16:20)
[2021-10-24] MEDS: Vancomycin Oral Soln 125 MG/2.5 ML UDC PO SCH ×4 (08:24→21:02)
[2021-10-24] MEDS: Metoprolol XL (24 HR) Succ 25 MG TAB.ER.24H PO SCH (08:25)
[2021-10-24] MEDS: BuPROPion XL (24 HR) 150 MG TABLET PO SCH (08:25)
[2021-10-24] MEDS: Calcium Gluconate 1gm/50mL 1 GM/50 ML BAG IVPB SCH ×2 (08:25→09:36)
[2021-10-24] MEDS: Cholecalciferol (D-3) 1,000 UNIT (25MCG) TABLET PO SCH (08:25)
[2021-10-24] MEDS: Aspirin Enteric Coated 81 MG Tablet PO SCH (08:26)
[2021-10-24] MEDS: FLUoxetine 20 MG CAPSULE PO SCH (08:26)
[2021-10-24] MEDS: OLANZapine 5 MG TAB.RAPDIS PO SCH (08:26)
[2021-10-24] MEDS: Potassium Chloride Elixir 20 MEQ/15 ML UDC PO SCH ×2 (08:35→21:04)
[2021-10-24] MEDS: Magnesium Oxide 400 MG TABLET PO SCH ×2 (08:38→21:03)
[2021-10-24] MEDS: 0.9 % Sodium Chloride 1,000 ML IVC SCH (16:20)
[2021-10-25] MEDS: MetroNIDAZOLE 500 MG/100 ML 500 MG/100 ML BAG IVPB SCH ×2 (00:10→09:12)
[2021-10-25] MEDS: 0.9 % Sodium Chloride 1,000 ML IVC SCH ×2 (02:29→04:25)
[2021-10-25 03:33] LABS: Basophils # 0.1 K/mcL (0.0-0.2); Basophils % 0.5 %; Eosinophils # 0.6 K/mcL (0.0-0.6); Eosinophils % 4.3 %; Hematocrit 30.9 % (37.5-50.1); Hemoglobin 9.5 g/dL (12.9-16.9); Immature Granulocytes % 1.3 % (0-4); Lymphocytes # 0.7 K/mcL (0.6-4.6); Lymphocytes % 5.6 %; Mean Corpuscular HGB Conc 30.7 g/dL (31.6-35.5); Mean Corpuscular Hemoglobin 29.6 pg (28.0-33.3); Mean Corpuscular Volume 96.3 fL (83.0-100.0); Mean Platelet Volume 9.5 fL (9.4-12.4); Monocytes # 1.3 K/mcL (0.0-1.3); Neutrophils # 10.1 K/mcL (1.6-8.9); Platelet Count 408 K/mcL (140-400); Red Blood Count 3.21 M/mcL (4.19-5.50); Red Cell Distribution Width 14.6 % (11.5-14.5); Segmented Neutrophils % 78.3 %
[2021-10-25 03:49] LABS: BUN/Creatinine Ratio 13 (6-26); Blood Urea Nitrogen 9 mg/dL (8-23); Calcium 7.1 mg/dL (8.6-10.3); Carbon Dioxide 23 mEq/L (23-29); Chloride 111 mEq/L (98-107); Glucose 96 mg/dL (70-105); Magnesium 1.8 mg/dL (1.6-2.6); Osmolality,Calculated 289 (280-300); Sodium 140 mEq/L (136-145); eGFR For African Americans > 60 (> 60); eGFR For Non-African Americans > 60 (> 60)
[2021-10-25] MEDS: *HR* Heparin 5,000 UNIT/ML VIAL SQ SCH ×2 (04:26→14:34)
[2021-10-25] MEDS: FLUoxetine 20 MG CAPSULE PO SCH (09:10)
[2021-10-25] MEDS: Aspirin Enteric Coated 81 MG Tablet PO SCH (09:11)
[2021-10-25] MEDS: Vancomycin Oral Soln 125 MG/2.5 ML UDC PO SCH ×2 (09:11→12:59)
[2021-10-25] MEDS: Cholecalciferol (D-3) 1,000 UNIT (25MCG) TABLET PO SCH (09:11)
[2021-10-25] MEDS: BuPROPion XL (24 HR) 150 MG TABLET PO SCH (09:11)
[2021-10-25] MEDS: Magnesium Oxide 400 MG TABLET PO SCH (09:11)
[2021-10-25] MEDS: Metoprolol XL (24 HR) Succ 25 MG TAB.ER.24H PO SCH (09:11)
[2021-10-25] MEDS: OLANZapine 5 MG TAB.RAPDIS PO SCH (09:14)
[2021-10-25 11:13] VITALS: BP 150/56; PULSE 98; TEMP 98.6
[2021-10-25 12:26] VITALS: O2SAT 97
[2021-10-25] MEDS: Ondansetron ODT 4 MG TAB.RAPDIS SL PRN (14:44)
[2021-10-25] MEDS ORDERED: Nystatin POWDER 30 GM BOTTLE TP SCH (15:00)
== END 2021-10-25 15:34 | disposition home or self-care (01) | DRG 720 ==
LOC: 3ANU → SUATTDRO 10-20 01:52
PROVIDERS: ADMIT Internal Medicine; ATTEND Family Medicine

== ENCOUNTER 2021-11-27 15:49 | Inpatient (IN) ==
[2021-11-27] MEDS ORDERED: 0.9 % Sodium Chloride 1,000 ML IVC ONE (19:03)
[2021-11-27] MEDS ORDERED: Vancomycin Oral Soln 125 MG/2.5 ML UDC PO STA (19:35)
[2021-11-27 20:14] LABS: Basophils # 0.1 K/mcL (0.0-0.2); Basophils % 0.5 %; Eosinophils # 0.1 K/mcL (0.0-0.6); Eosinophils % 0.5 %; Hematocrit 41.5 % (37.5-50.1); Hemoglobin 12.7 g/dL (12.9-16.9); Immature Granulocytes % 0.4 % (0-4); Lymphocytes # 1.2 K/mcL (0.6-4.6); Lymphocytes % 5.1 %; Mean Corpuscular HGB Conc 30.6 g/dL (31.6-35.5); Mean Corpuscular Hemoglobin 29.6 pg (28.0-33.3); Mean Corpuscular Volume 96.7 fL (83.0-100.0); Mean Platelet Volume 9.1 fL (9.4-12.4); Monocytes # 1.6 K/mcL (0.0-1.3); Monocytes % 7.2 %; Neutrophils # 19.4 K/mcL (1.6-8.9); Platelet Count 503 K/mcL (140-400); Red Blood Count 4.29 M/mcL (4.19-5.50); Red Cell Distribution Width 15.2 % (11.5-14.5); Segmented Neutrophils % 86.3 %; White Blood Count 22.5 K/mcL (4.3-11.1)
[2021-11-27 20:24] LABS: INR 1.3
[2021-11-27 20:27] LABS: Activated Partial Thrombo Time 38.3 Seconds (26.0-36.0)
[2021-11-27 20:36] LABS: Albumin 3.2 g/dL (3.5-5.7); Albumin/Globulin Ratio 0.9 (1.1-2.2); Bilirubin,Direct 0.1 mg/dL (0.0-0.2); Bilirubin,Indirect 0.5 mg/dL (0.0-1.0); Bilirubin,Total 0.6 mg/dL (0.3-1.0); Calcium 7.6 mg/dL (8.6-10.3); Globulin 3.7 g/dL (2.4-3.5); Potassium 4.3 mEq/L (3.5-5.1); Total Protein 6.9 g/dL (6.4-8.9); Troponin I 0.03 ng/mL (< 0.04)
[2021-11-27] MEDS ORDERED: Fidaxomicin 200 MG TABLET PO SCH (21:45)
[2021-11-27] MEDS ORDERED: predniSONE 20 MG TABLET PO PRN (22:52)
[2021-11-27] MEDS ORDERED: Acetaminophen 325 MG TABLET PO PRN (22:55)
[2021-11-27] MEDS ORDERED: Naloxone 0.4 MG/ML INJ IVP PRN (22:55)
[2021-11-27] MEDS ORDERED: Ondansetron 4 MG/2 ML VIAL IVP PRN (22:55)
[2021-11-27] MEDS ORDERED: Melatonin 3 MG TABLET PO PRN (22:55)
[2021-11-27] MEDS ORDERED: Dextrose Gel 15 GM/37.5 ML TUBE PO PRN ×2 (22:58)
[2021-11-27] MEDS ORDERED: D5% in Water 1,000 ML IVC PRN (22:58)
[2021-11-27] MEDS ORDERED: *HR* Dextrose 50 % in Water (Syg) 50 ML SYRINGE IVP PRN (22:58)
[2021-11-27] MEDS ORDERED: Ringers Solution, Lactated 1,000 ML IVC SCH (23:00)
[2021-11-27] MEDS: Fidaxomicin 200 MG TABLET PO SCH (23:10)
[2021-11-28 06:51] LABS: Basophils # 0.1 K/mcL (0.0-0.2); Basophils % 0.6 %; Eosinophils # 0.2 K/mcL (0.0-0.6); Hematocrit 35.9 % (37.5-50.1); Immature Granulocytes % 0.5 % (0-4); Lymphocytes # 0.9 K/mcL (0.6-4.6); Lymphocytes % 4.8 %; Mean Corpuscular HGB Conc 30.6 g/dL (31.6-35.5); Mean Corpuscular Hemoglobin 29.2 pg (28.0-33.3); Mean Corpuscular Volume 95.2 fL (83.0-100.0); Mean Platelet Volume 9.2 fL (9.4-12.4); Monocytes # 1.6 K/mcL (0.0-1.3); Monocytes % 8.2 %; Neutrophils # 16.2 K/mcL (1.6-8.9); Platelet Count 445 K/mcL (140-400); Red Blood Count 3.77 M/mcL (4.19-5.50); Segmented Neutrophils % 84.9 %; White Blood Count 19.1 K/mcL (4.3-11.1)
[2021-11-28 07:11] LABS: Calcium 7.3 mg/dL (8.6-10.3); Chol/HDL Ratio 3.8 (0-4.9); Magnesium 1.6 mg/dL (1.6-2.6); Phosphorous 2.7 mg/dL (2.7-4.5); Potassium 4.1 mEq/L (3.5-5.1)
[2021-11-28 08:26] LABS: Estimated Average Glucose 108 mg/dl; Hemoglobin A1C 5.4 %
[2021-11-28] MEDS: Insulin LISPRO 300 UNITS/3 ML VIAL SUBQ SCH ×2 (10:59→15:08)
[2021-11-28] MEDS: Ringers Solution, Lactated 1,000 ML IVC SCH ×2 (11:17→13:39)
[2021-11-28] MEDS: Fidaxomicin 200 MG TABLET PO SCH ×2 (11:17→23:10)
[2021-11-28] MEDS: *HR* HYDROcodone/Acet 5/325 mg TABLET PO PRN ×2 (13:39→23:14)
[2021-11-28] MEDS: *HR* Heparin 5,000 UNIT/ML VIAL SQ SCH ×2 (13:39→23:10)
[2021-11-28] MEDS: predniSONE 5 MG TABLET PO SCH (13:39)
[2021-11-28] MEDS ORDERED: Insulin LISPRO 300 UNITS/3 ML VIAL SUBQ SCH (21:00)
[2021-11-28] MEDS: Lactobacillus 1 EACH CAP.SPRINK PO SCH (23:10)
[2021-11-28] MEDS: ENZALUTAMIDE 40 MG PO SCH (23:10)
[2021-11-29] MEDS: *HR* Heparin 5,000 UNIT/ML VIAL SQ SCH ×3 (06:46→21:28)
[2021-11-29] MEDS: Fidaxomicin 200 MG TABLET PO SCH (09:38)
[2021-11-29] MEDS: Lactobacillus 1 EACH CAP.SPRINK PO SCH ×2 (09:38→21:24)
[2021-11-29] MEDS: OLANZapine 5 MG TAB.RAPDIS PO SCH (09:38)
[2021-11-29] MEDS: Aspirin Enteric Coated 81 MG Tablet PO SCH (09:38)
[2021-11-29] MEDS: predniSONE 5 MG TABLET PO SCH (09:38)
[2021-11-29] MEDS: Metoprolol XL (24 HR) Succ 25 MG TAB.ER.24H PO SCH (09:38)
[2021-11-29] MEDS: FLUoxetine 20 MG CAPSULE PO SCH (09:39)
[2021-11-29] MEDS: ENZALUTAMIDE 40 MG PO SCH ×2 (09:41→21:56)
[2021-11-29] MEDS: *HR* HYDROcodone/Acet 5/325 mg TABLET PO PRN ×2 (09:42→17:07)
[2021-11-29] MEDS: Vancomycin Oral Soln 125 MG/2.5 ML UDC PO SCH ×2 (17:08→21:24)
[2021-11-30 03:04] LABS: Hematocrit 33.9 % (37.5-50.1); Hemoglobin 10.7 g/dL (12.9-16.9); Mean Corpuscular HGB Conc 31.6 g/dL (31.6-35.5); Mean Corpuscular Hemoglobin 29.2 pg (28.0-33.3); Mean Corpuscular Volume 92.4 fL (83.0-100.0); Mean Platelet Volume 9.2 fL (9.4-12.4); Platelet Count 381 K/mcL (140-400); Red Blood Count 3.67 M/mcL (4.19-5.50); Red Cell Distribution Width 14.5 % (11.5-14.5); White Blood Count 11.5 K/mcL (4.3-11.1)
[2021-11-30 03:29] LABS: Calcium 7.3 mg/dL (8.6-10.3); Potassium 3.3 mEq/L (3.5-5.1)
[2021-11-30] MEDS: *HR* Heparin 5,000 UNIT/ML VIAL SQ SCH ×3 (05:55→21:17)
[2021-11-30] MEDS: predniSONE 5 MG TABLET PO SCH (09:04)
[2021-11-30] MEDS: Aspirin Enteric Coated 81 MG Tablet PO SCH (09:04)
[2021-11-30] MEDS: ENZALUTAMIDE 40 MG PO SCH ×2 (09:04→21:17)
[2021-11-30] MEDS: FLUoxetine 20 MG CAPSULE PO SCH (09:04)
[2021-11-30] MEDS: Metoprolol XL (24 HR) Succ 25 MG TAB.ER.24H PO SCH (09:04)
[2021-11-30] MEDS: Lactobacillus 1 EACH CAP.SPRINK PO SCH ×2 (09:04→21:16)
[2021-11-30] MEDS: Vancomycin Oral Soln 125 MG/2.5 ML UDC PO SCH ×4 (09:05→21:16)
[2021-11-30] MEDS: *HR* HYDROcodone/Acet 5/325 mg TABLET PO PRN ×4 (09:08→21:16)
[2021-11-30] MEDS: OLANZapine 5 MG TAB.RAPDIS PO SCH (09:10)
[2021-12-01] MEDS: *HR* Heparin 5,000 UNIT/ML VIAL SQ SCH ×3 (05:24→20:08)
[2021-12-01] MEDS: Vancomycin Oral Soln 125 MG/2.5 ML UDC PO SCH ×4 (09:47→20:08)
[2021-12-01] MEDS: Lactobacillus 1 EACH CAP.SPRINK PO SCH ×2 (09:49→20:08)
[2021-12-01] MEDS: FLUoxetine 20 MG CAPSULE PO SCH (09:49)
[2021-12-01] MEDS: predniSONE 5 MG TABLET PO SCH (09:50)
[2021-12-01] MEDS: Aspirin Enteric Coated 81 MG Tablet PO SCH (09:50)
[2021-12-01] MEDS: Metoprolol XL (24 HR) Succ 25 MG TAB.ER.24H PO SCH (09:50)
[2021-12-01] MEDS: ENZALUTAMIDE 40 MG PO SCH (10:20)
[2021-12-01] MEDS: OLANZapine 5 MG TAB.RAPDIS PO SCH (10:25)
[2021-12-01] MEDS: Famotidine 20 MG TABLET PO SCH (16:58)
[2021-12-01] MEDS: *HR* HYDROcodone/Acet 5/325 mg TABLET PO PRN (20:02)
[2021-12-02] MEDS: *HR* Heparin 5,000 UNIT/ML VIAL SQ SCH ×3 (05:05→21:41)
[2021-12-02] MEDS: Lactobacillus 1 EACH CAP.SPRINK PO SCH ×2 (10:22→21:41)
[2021-12-02] MEDS: Metoprolol XL (24 HR) Succ 25 MG TAB.ER.24H PO SCH (10:22)
[2021-12-02] MEDS: Aspirin Enteric Coated 81 MG Tablet PO SCH (10:23)
[2021-12-02] MEDS: OLANZapine 5 MG TAB.RAPDIS PO SCH (10:24)
[2021-12-02] MEDS: predniSONE 5 MG TABLET PO SCH (10:24)
[2021-12-02] MEDS: FLUoxetine 20 MG CAPSULE PO SCH (10:24)
[2021-12-02] MEDS: ENZALUTAMIDE 40 MG PO SCH (10:24)
[2021-12-02] MEDS: Famotidine 20 MG TABLET PO SCH (10:24)
[2021-12-02] MEDS: Vancomycin Oral Soln 125 MG/2.5 ML UDC PO SCH ×4 (11:48→21:41)
[2021-12-02] MEDS: *HR* HYDROcodone/Acet 5/325 mg TABLET PO PRN ×2 (18:20→23:01)
[2021-12-03 08:00] VITALS: O2SAT 97
[2021-12-03] MEDS: Aspirin Enteric Coated 81 MG Tablet PO SCH (09:51)
[2021-12-03] MEDS: Famotidine 20 MG TABLET PO SCH (09:51)
[2021-12-03] MEDS: FLUoxetine 20 MG CAPSULE PO SCH (09:51)
[2021-12-03] MEDS: OLANZapine 5 MG TAB.RAPDIS PO SCH (09:51)
[2021-12-03] MEDS: *HR* Heparin 5,000 UNIT/ML VIAL SQ SCH (09:51)
[2021-12-03] MEDS: Lactobacillus 1 EACH CAP.SPRINK PO SCH (09:51)
[2021-12-03] MEDS: Metoprolol XL (24 HR) Succ 25 MG TAB.ER.24H PO SCH (09:51)
[2021-12-03] MEDS: predniSONE 5 MG TABLET PO SCH (09:51)
[2021-12-03] MEDS: Vancomycin Oral Soln 125 MG/2.5 ML UDC PO SCH (09:52)
[2021-12-03] MEDS: *HR* HYDROcodone/Acet 5/325 mg TABLET PO PRN (09:53)
[2021-12-03] MEDS: ENZALUTAMIDE 40 MG PO SCH (09:53)
[2021-12-03 11:51] VITALS: BP 147/67; PULSE 80; TEMP 97.9
== END 2021-12-03 17:11 | disposition home or self-care (01) | DRG 720 ==
LOC: SUATTDRO → EMEROOARM 15:49 → 2ANU 15:49 → OBSVTOIN 11-28 11:40 → SUATTDRO 11-28 11:40 → 2ANU 11-28 13:13
PROVIDERS: ADMIT Internal Medicine; ATTEND Family Medicine

== ENCOUNTER 2022-01-01 11:49 | Inpatient (IN) ==
[2022-01-01] MEDS ORDERED: Iopamidol - 370 500 ML MLS IVP ONE (12:26)
[2022-01-01] MEDS ORDERED: 0.9 % Sodium Chloride 1,000 ML IVC ONE (12:28)
[2022-01-01 13:56] LABS: Hematocrit 38.4 % (37.5-50.1); Hemoglobin 12.5 g/dL (12.9-16.9); Mean Corpuscular HGB Conc 32.6 g/dL (31.6-35.5); Mean Corpuscular Hemoglobin 29.2 pg (28.0-33.3); Mean Corpuscular Volume 89.7 fL (83.0-100.0); Mean Platelet Volume 9.4 fL (9.4-12.4); Platelet Count 245 K/mcL (140-400); Red Blood Count 4.28 M/mcL (4.19-5.50); Red Cell Distribution Width 14.2 % (11.5-14.5); White Blood Count 5.3 K/mcL (4.3-11.1)
[2022-01-01 14:04] LABS: INR 1.6; Prothrombin Time 17.6 Seconds (9.4-12.1)
[2022-01-01 14:15] LABS: Alanine Aminotransferase 12 Units/L (7-52); Albumin/Globulin Ratio 0.9 (1.1-2.2); Alkaline Phosphatase 121 Units/L (34-104); Aspartate Amino Transferase 33 Units/L (13-39); BUN/Creatinine Ratio 21 (6-26); Bilirubin,Direct 0.2 mg/dL (0.0-0.2); Bilirubin,Indirect 0.3 mg/dL (0.0-1.0); Bilirubin,Total 0.5 mg/dL (0.3-1.0); Blood Urea Nitrogen 22 mg/dL (8-23); Calcium 7.8 mg/dL (8.6-10.3); Carbon Dioxide 24 mEq/L (23-29); Chloride 101 mEq/L (98-107); Globulin 3.3 g/dL (2.4-3.5); Glucose 130 mg/dL (70-105); Osmolality,Calculated 285 (280-300); Potassium 3.5 mEq/L (3.5-5.1); Sodium 135 mEq/L (136-145); Total Protein 6.3 g/dL (6.4-8.9); Troponin I < 0.03 ng/mL (< 0.04)
[2022-01-01] MEDS ORDERED: Cefepime HCl 2,000 MG in 0.9 % Sodium Chloride 10 ML IVP ONE (15:07)
[2022-01-01] MEDS ORDERED: Ondansetron 4 MG/2 ML VIAL IVP PRN (15:50)
[2022-01-01] MEDS ORDERED: Naloxone 0.4 MG/ML INJ IVP PRN (15:50)
[2022-01-01] MEDS ORDERED: *HR* Dextrose 50 % in Water (Syg) 50 ML SYRINGE IVP PRN (16:02)
[2022-01-01] MEDS ORDERED: Dextrose Gel 15 GM/37.5 ML TUBE PO PRN ×2 (16:02)
[2022-01-01] MEDS ORDERED: D5% in Water 1,000 ML IVC PRN (16:02)
[2022-01-01] MEDS ORDERED: Ipratropium/Albuterol Neb 3 ML IH PRN (16:03)
[2022-01-01 16:46] LABS: C-Reactive Protein 30 mg/L (Less than 10)
[2022-01-01 17:32] LABS: Adenovirus Not Detected (Not Detect); Bordetella Pertussis Not Detected (Not Detect); Chlamydophila pneumoniae Not Detected (Not Detect); Coronavirus 229E Not Detected (Not Detect); Coronavirus HKU1 Not Detected (Not Detect); Coronavirus NL63 Not Detected (Not Detect); Coronavirus OC43 Not Detected (Not Detect); Human Metapneumovirus Not Detected (Not Detect); Human Rhinovirus/Enterovirus Not Detected (Not Detect); Influenza A Subtype 2009 H1 Not Detected (Not Detect); Influenza B Not Detected (Not Detect); Mycoplasma pneumoniae Not Detected (Not Detect); Parainfluenza Virus 1 Not Detected (Not Detect); Parainfluenza Virus 2 Not Detected (Not Detect); Parainfluenza Virus 3 Not Detected (Not Detect); Parainfluenza Virus 4 Not Detected (Not Detect); Respiratory Syncytial Virus Not Detected (Not Detect); SARS-CoV-2 Not Detected (Not Detect)
[2022-01-01] MEDS ORDERED: *HR* HYDROcodone/Acet 5/325 mg TABLET PO ONE (18:00)
[2022-01-01] MEDS: Insulin LISPRO 300 UNITS/3 ML VIAL SUBQ SCH ×2 (18:08→21:27)
[2022-01-01] MEDS: Pantoprazole 40 MG VIAL IVP SCH (18:19)
[2022-01-01] MEDS: Ringers Solution, Lactated 1,000 ML IVC SCH (18:22)
[2022-01-01] MEDS: *HR* Heparin 5,000 UNIT/ML VIAL SQ SCH (21:32)
[2022-01-02 02:51] LABS: Basophils % 0.7 %; Eosinophils # 0.1 K/mcL (0.0-0.6); Eosinophils % 1.9 %; Hematocrit 31.7 % (37.5-50.1); Immature Granulocytes % 0.5 % (0-4); Lymphocytes # 0.8 K/mcL (0.6-4.6); Lymphocytes % 19.5 %; Mean Corpuscular HGB Conc 33.1 g/dL (31.6-35.5); Mean Corpuscular Hemoglobin 29.6 pg (28.0-33.3); Mean Corpuscular Volume 89.3 fL (83.0-100.0); Mean Platelet Volume 9.8 fL (9.4-12.4); Monocytes # 0.7 K/mcL (0.0-1.3); Monocytes % 15.4 %; Neutrophils # 2.6 K/mcL (1.6-8.9); Platelet Count 221 K/mcL (140-400); Red Blood Count 3.55 M/mcL (4.19-5.50); Red Cell Distribution Width 14.2 % (11.5-14.5); White Blood Count 4.2 K/mcL (4.3-11.1)
[2022-01-02 02:57] LABS: Hemoglobin 10.5 g/dL (12.9-16.9)
[2022-01-02 03:03] LABS: Magnesium 1.9 mg/dL (1.6-2.6); Phosphorous 2.7 mg/dL (2.7-4.5); Potassium 3.2 mEq/L (3.5-5.1)
[2022-01-02] MEDS: *HR* Heparin 5,000 UNIT/ML VIAL SQ SCH ×3 (05:25→21:08)
[2022-01-02] MEDS: Ringers Solution, Lactated 1,000 ML IVC SCH (05:26)
[2022-01-02] MEDS: Pantoprazole 40 MG VIAL IVP SCH ×2 (06:33→17:17)
[2022-01-02] MEDS ORDERED: ALPRAZolam 0.25 MG TABLET PO PRN (07:21)
[2022-01-02] MEDS ORDERED: Metoprolol XL (24 HR) Succ 25 MG TAB.ER.24H PO SCH (09:00)
[2022-01-02] MEDS ORDERED: Vancomycin Oral Soln 125 MG/2.5 ML UDC PO SCH (09:00)
[2022-01-02] MEDS: Insulin LISPRO 300 UNITS/3 ML VIAL SUBQ SCH ×4 (09:57→20:45)
[2022-01-02] MEDS: BuPROPion XL (24 HR) 150 MG TABLET PO SCH (09:58)
[2022-01-02] MEDS: Cholecalciferol (D-3) 1,000 UNIT (25MCG) TABLET PO SCH (09:58)
[2022-01-02] MEDS: OLANZapine 5 MG TAB.RAPDIS PO SCH (09:58)
[2022-01-02] MEDS: Magnesium Oxide 400 MG TABLET PO SCH ×2 (09:58→21:07)
[2022-01-02] MEDS: Famotidine 20 MG TABLET PO SCH (09:59)
[2022-01-02] MEDS: predniSONE 5 MG TABLET PO SCH (09:59)
[2022-01-02] MEDS: Metoprolol XL (24 HR) Succ 50 MG TAB.ER.24H PO SCH (09:59)
[2022-01-02] MEDS: Aspirin Enteric Coated 81 MG Tablet PO SCH (09:59)
[2022-01-02] MEDS: Mirtazapine 15 MG TABLET PO SCH (09:59)
[2022-01-02] MEDS: Nystatin POWDER 30 GM BOTTLE TP SCH (10:00)
[2022-01-02] MEDS: FLUoxetine 20 MG CAPSULE PO SCH (10:00)
[2022-01-02] MEDS: Vancomycin Oral Soln 125 MG/2.5 ML UDC PO SCH (11:36)
[2022-01-02] MEDS: *HR* HYDROcodone/Acet 7.5/325 mg TABLET PO PRN ×2 (13:56→21:12)
[2022-01-02 18:54] LABS: Enterococcus faecalis by PCR Not Detected (Not Detect); Enterococcus faecium by PCR Not Detected (Not Detect)
[2022-01-02 18:55] LABS: A.calcoaceticus-baumannii cplx Not Detected (Not Detect); Bacteroides fragilis by PCR Not Detected (Not Detect); Candida albicans by PCR Not Detected (Not Detect); Candida auris by PCR Not Detected (Not Detect); Candida glabrata by PCR Not Detected (Not Detect); Candida krusei by PCR Not Detected (Not Detect); Candida parapsilosis by PCR Not Detected (Not Detect); Candida tropicalis by PCR Not Detected (Not Detect); Crypto. neoformans/gattii PCR Not Detected (Not Detect); Enterobacter cloacae Cmplx PCR Not Detected (Not Detect); Enterobacterales by PCR Not Detected (Not Detect); Escherichia coli by PCR Not Detected (Not Detect); Klebs. pneumoniae group by PCR Not Detected (Not Detect); Klebsiella aerogenes by PCR Not Detected (Not Detect); Klebsiella oxytoca by PCR Not Detected (Not Detect); Proteus by PCR Not Detected (Not Detect); Pseudomonas aeruginosa by PCR Not Detected (Not Detect); Salmonella species by PCR Not Detected (Not Detect); Serratia marcescens by PCR Not Detected (Not Detect); Staph epidermidis by PCR Not Detected (Not Detect); Staph lugdunensis by PCR Not Detected (Not Detect); Staphylococcus aureus by PCR Not Detected (Not Detect); Staphylococcus by PCR DETECTED (Not Detect); Stenotrophomonas maltophilia Not Detected (Not Detect); Streptococcus agalactiae(B)PCR Not Detected (Not Detect); Streptococcus by PCR Not Detected (Not Detect); Streptococcus pneumoniae PCR Not Detected (Not Detect); Streptococcus pyogenes (A) PCR Not Detected (Not Detect)
[2022-01-02] MEDS ORDERED: Vancomycin 1,250 MG/262.5 ML IV.SOLN IVPB ONE (21:32)
[2022-01-02 21:46] LABS: Hematocrit 30.8 % (37.5-50.1); Hemoglobin 10.2 g/dL (12.9-16.9)
[2022-01-03 04:24] LABS: Basophils % 0.7 %; Eosinophils # 0.1 K/mcL (0.0-0.6); Eosinophils % 2.4 %; Hematocrit 30.9 % (37.5-50.1); Hemoglobin 10.2 g/dL (12.9-16.9); Immature Granulocytes % 0.4 % (0-4); Lymphocytes % 22.5 %; Mean Corpuscular Hemoglobin 29.7 pg (28.0-33.3); Mean Corpuscular Volume 90.1 fL (83.0-100.0); Mean Platelet Volume 9.6 fL (9.4-12.4); Monocytes # 0.5 K/mcL (0.0-1.3); Monocytes % 11.9 %; Neutrophils # 2.8 K/mcL (1.6-8.9); Platelet Count 218 K/mcL (140-400); Red Blood Count 3.43 M/mcL (4.19-5.50); Red Cell Distribution Width 14.3 % (11.5-14.5); Segmented Neutrophils % 62.1 %; White Blood Count 4.5 K/mcL (4.3-11.1)
[2022-01-03 04:46] LABS: Calcium 7.3 mg/dL (8.6-10.3); Potassium 3.2 mEq/L (3.5-5.1)
[2022-01-03] MEDS: Pantoprazole 40 MG VIAL IVP SCH ×2 (06:08→17:43)
[2022-01-03] MEDS: Nystatin POWDER 30 GM BOTTLE TP SCH ×3 (06:10→21:45)
[2022-01-03] MEDS: *HR* Heparin 5,000 UNIT/ML VIAL SQ SCH ×3 (06:10→21:45)
[2022-01-03] MEDS: Insulin LISPRO 300 UNITS/3 ML VIAL SUBQ SCH ×4 (07:58→21:45)
[2022-01-03] MEDS: amLODIPine 5 MG TABLET PO SCH (08:26)
[2022-01-03] MEDS: FLUoxetine 20 MG CAPSULE PO SCH (08:26)
[2022-01-03] MEDS: Mirtazapine 15 MG TABLET PO SCH (08:26)
[2022-01-03] MEDS: Metoprolol XL (24 HR) Succ 50 MG TAB.ER.24H PO SCH (08:26)
[2022-01-03] MEDS: Cholecalciferol (D-3) 1,000 UNIT (25MCG) TABLET PO SCH (08:26)
[2022-01-03] MEDS: Magnesium Oxide 400 MG TABLET PO SCH ×2 (08:27→21:44)
[2022-01-03] MEDS: OLANZapine 5 MG TAB.RAPDIS PO SCH (08:27)
[2022-01-03] MEDS: BuPROPion XL (24 HR) 150 MG TABLET PO SCH (08:27)
[2022-01-03] MEDS: Famotidine 20 MG TABLET PO SCH (08:27)
[2022-01-03] MEDS: predniSONE 5 MG TABLET PO SCH (08:27)
[2022-01-03] MEDS: Aspirin Enteric Coated 81 MG Tablet PO SCH (08:27)
[2022-01-03] MEDS: *HR* HYDROcodone/Acet 7.5/325 mg TABLET PO PRN ×2 (08:43→17:49)
[2022-01-03] MEDS: Vancomycin 1,250 MG/262.5 ML IV.SOLN IVPB SCH (21:44)
[2022-01-04 01:20] LABS: Basophils % 0.7 %; Eosinophils # 0.1 K/mcL (0.0-0.6); Eosinophils % 1.9 %; Hematocrit 28.3 % (37.5-50.1); Hemoglobin 9.2 g/dL (12.9-16.9); Immature Granulocytes % 0.3 % (0-4); Lymphocytes # 1.1 K/mcL (0.6-4.6); Lymphocytes % 17.8 %; Mean Corpuscular HGB Conc 32.5 g/dL (31.6-35.5); Mean Corpuscular Hemoglobin 29.9 pg (28.0-33.3); Mean Corpuscular Volume 91.9 fL (83.0-100.0); Mean Platelet Volume 9.7 fL (9.4-12.4); Monocytes # 0.6 K/mcL (0.0-1.3); Monocytes % 9.3 %; Neutrophils # 4.1 K/mcL (1.6-8.9); Platelet Count 257 K/mcL (140-400); Red Blood Count 3.08 M/mcL (4.19-5.50); Red Cell Distribution Width 14.2 % (11.5-14.5); White Blood Count 5.9 K/mcL (4.3-11.1)
[2022-01-04 01:43] LABS: Calcium 7.5 mg/dL (8.6-10.3); Potassium 3.4 mEq/L (3.5-5.1)
[2022-01-04] MEDS: Pantoprazole 40 MG VIAL IVP SCH ×2 (05:46→17:20)
[2022-01-04] MEDS: *HR* Heparin 5,000 UNIT/ML VIAL SQ SCH ×3 (05:46→22:03)
[2022-01-04] MEDS: Insulin LISPRO 300 UNITS/3 ML VIAL SUBQ SCH ×4 (07:53→22:04)
[2022-01-04] MEDS: FLUoxetine 20 MG CAPSULE PO SCH (09:00)
[2022-01-04] MEDS: Magnesium Oxide 400 MG TABLET PO SCH ×2 (09:01→22:03)
[2022-01-04] MEDS: Famotidine 20 MG TABLET PO SCH (09:02)
[2022-01-04] MEDS: BuPROPion XL (24 HR) 150 MG TABLET PO SCH (09:03)
[2022-01-04] MEDS: Mirtazapine 15 MG TABLET PO SCH (09:03)
[2022-01-04] MEDS: Aspirin Enteric Coated 81 MG Tablet PO SCH (09:03)
[2022-01-04] MEDS: predniSONE 5 MG TABLET PO SCH (09:03)
[2022-01-04] MEDS: OLANZapine 5 MG TAB.RAPDIS PO SCH (09:04)
[2022-01-04] MEDS: Metoprolol XL (24 HR) Succ 50 MG TAB.ER.24H PO SCH (09:04)
[2022-01-04] MEDS: Cholecalciferol (D-3) 1,000 UNIT (25MCG) TABLET PO SCH (09:04)
[2022-01-04] MEDS: amLODIPine 5 MG TABLET PO SCH (09:04)
[2022-01-04] MEDS: Nystatin POWDER 30 GM BOTTLE TP SCH ×2 (09:18→22:10)
[2022-01-04] MEDS: *HR* HYDROcodone/Acet 7.5/325 mg TABLET PO PRN ×2 (11:35→17:19)
[2022-01-04] MEDS: Vancomycin 1,250 MG/262.5 ML IV.SOLN IVPB SCH (21:57)
[2022-01-04] MEDS ORDERED: Vancomycin 1,500 MG/265 ML IV.SOLN IVPB SCH (22:00)
[2022-01-05 04:27] LABS: Basophils # 0.1 K/mcL (0.0-0.2); Basophils % 0.8 %; Eosinophils # 0.2 K/mcL (0.0-0.6); Eosinophils % 3.3 %; Hematocrit 30.4 % (37.5-50.1); Hemoglobin 9.8 g/dL (12.9-16.9); Immature Granulocytes % 0.5 % (0-4); Lymphocytes # 1.1 K/mcL (0.6-4.6); Lymphocytes % 16.3 %; Mean Corpuscular HGB Conc 32.2 g/dL (31.6-35.5); Mean Corpuscular Hemoglobin 29.3 pg (28.0-33.3); Mean Platelet Volume 9.6 fL (9.4-12.4); Monocytes # 0.7 K/mcL (0.0-1.3); Monocytes % 10.5 %; Neutrophils # 4.4 K/mcL (1.6-8.9); Platelet Count 318 K/mcL (140-400); Red Blood Count 3.34 M/mcL (4.19-5.50); Red Cell Distribution Width 14.3 % (11.5-14.5); Segmented Neutrophils % 68.6 %; White Blood Count 6.5 K/mcL (4.3-11.1)
[2022-01-05 04:41] LABS: BUN/Creatinine Ratio 15 (6-26); Blood Urea Nitrogen 11 mg/dL (8-23); Calcium 7.6 mg/dL (8.6-10.3); Carbon Dioxide 22 mEq/L (23-29); Chloride 109 mEq/L (98-107); Glucose 88 mg/dL (70-105); Osmolality,Calculated 283 (280-300); Potassium 3.5 mEq/L (3.5-5.1); Sodium 137 mEq/L (136-145)
[2022-01-05] MEDS: Pantoprazole 40 MG VIAL IVP SCH ×2 (06:17→18:19)
[2022-01-05] MEDS: *HR* Heparin 5,000 UNIT/ML VIAL SQ SCH ×2 (06:18→15:21)
[2022-01-05] MEDS: Insulin LISPRO 300 UNITS/3 ML VIAL SUBQ SCH ×3 (08:55→16:59)
[2022-01-05] MEDS: BuPROPion XL (24 HR) 150 MG TABLET PO SCH (09:02)
[2022-01-05] MEDS: Cholecalciferol (D-3) 1,000 UNIT (25MCG) TABLET PO SCH (09:02)
[2022-01-05] MEDS: Aspirin Enteric Coated 81 MG Tablet PO SCH (09:02)
[2022-01-05] MEDS: Mirtazapine 15 MG TABLET PO SCH (09:02)
[2022-01-05] MEDS: FLUoxetine 20 MG CAPSULE PO SCH (09:03)
[2022-01-05] MEDS: predniSONE 5 MG TABLET PO SCH (09:03)
[2022-01-05] MEDS: Famotidine 20 MG TABLET PO SCH (09:03)
[2022-01-05] MEDS: amLODIPine 5 MG TABLET PO SCH (09:03)
[2022-01-05] MEDS: Magnesium Oxide 400 MG TABLET PO SCH (09:03)
[2022-01-05] MEDS: Metoprolol XL (24 HR) Succ 50 MG TAB.ER.24H PO SCH (09:04)
[2022-01-05] MEDS: OLANZapine 5 MG TAB.RAPDIS PO SCH (09:18)
[2022-01-05] MEDS: Vancomycin Oral Soln 125 MG/2.5 ML UDC PO SCH (09:18)
[2022-01-05] MEDS: Nystatin POWDER 30 GM BOTTLE TP SCH (18:21)
[2022-01-06] MEDS: Insulin LISPRO 300 UNITS/3 ML VIAL SUBQ SCH ×2 (00:03→08:34)
[2022-01-06] MEDS: Magnesium Oxide 400 MG TABLET PO SCH ×2 (00:04→09:43)
[2022-01-06] MEDS: Nystatin POWDER 30 GM BOTTLE TP SCH ×2 (00:04→09:50)
[2022-01-06] MEDS: *HR* Heparin 5,000 UNIT/ML VIAL SQ SCH ×2 (00:04→05:24)
[2022-01-06] MEDS: Pantoprazole 40 MG VIAL IVP SCH (05:24)
[2022-01-06] MEDS: OLANZapine 5 MG TAB.RAPDIS PO SCH (09:41)
[2022-01-06] MEDS: Cholecalciferol (D-3) 1,000 UNIT (25MCG) TABLET PO SCH (09:43)
[2022-01-06] MEDS: Mirtazapine 15 MG TABLET PO SCH (09:44)
[2022-01-06] MEDS: predniSONE 5 MG TABLET PO SCH (09:45)
[2022-01-06] MEDS: Aspirin Enteric Coated 81 MG Tablet PO SCH (09:45)
[2022-01-06] MEDS: Metoprolol XL (24 HR) Succ 50 MG TAB.ER.24H PO SCH (09:45)
[2022-01-06] MEDS: FLUoxetine 20 MG CAPSULE PO SCH (09:46)
[2022-01-06] MEDS: amLODIPine 5 MG TABLET PO SCH (09:48)
[2022-01-06] MEDS: Famotidine 20 MG TABLET PO SCH (09:48)
[2022-01-06] MEDS: BuPROPion XL (24 HR) 150 MG TABLET PO SCH (09:48)
[2022-01-06 11:55] VITALS: BP 126/56; PULSE 70; TEMP 98.7; O2SAT 96
== END 2022-01-06 13:30 | disposition hospice, home (50) | DRG 248 ==
LOC: EMEROOARM 11:49 → 2ANU 11:49 → SUATTDRO 15:29 → 2ANU 16:26
PROVIDERS: ADMIT Internal Medicine; ATTEND Family Medicine